=== PATIENT | female | born 1960 | race Caucasian/White ===

== ENCOUNTER → 2018-03-06 | Outpatient (CLI) | payer MEDICAID ==
[~2018-03-06] MED LIST: AMLODIPINE BESY1 TAB PO; ANAPROX DS550 MG PO; ASPIRIN325 M2 PO; ATENOLOL25 MG PO; ATIVAN0.5 MG PO; ATORVASTATIN CA10 M1 PO; Amitriptyline H10 MG PO; CLARITIN10 MG PO; FLEXERIL5 MG PO; FLUOXETINE HCL10 MG PO; KEPPRA500 MG PO; LIPITOR10 MG PO; LISINOPRIL40 MG PO; MIRALAX17 GM PO; PARLODEL2.5 M1 PO; PROTONIX40 MG PO; TENORMIN25 M1 PO; TRAZODONE50 MG PO; VICODIN 5/500 505 MG PO; VITAMIN D34000 UNIT PO; WOMEN'S MULTI200 MCG PO; ZESTORETIC 12.51 TA3 PO
== END | disposition home or self-care (01) ==
LOC: MAMMO 00:37
DX: Z12.31 Encounter for screening mammogram for malignant neoplasm of breast (principal)

== ENCOUNTER 2019-04-12 14:49 | Emergency (ER) | payer MEDICAID ==
[~2019-04-12] VITALS: Ht 170.1 cm; Wt 117.9 kg
--- NOTE | ~2019-04-12 | EKG ---
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
[2019-04-12 15:39] LABS: BILIRUBIN NEGATIVE (NEGATIVE); BLOOD 1+ (NEGATIVE); CLARITY CLEAR (CLEAR); COLOR YELLOW (YELLOW); GLUCOSE NEGATIVE (NEGATIVE); KETONE NEGATIVE (NEGATIVE); LEUKO ESTERASE 1+ (NEGATIVE); NITRITE NEGATIVE (NEGATIVE); SPECIFIC GRAVITY <= 1.005 (1.005-1.030); UROBILINOGEN 0.2 E.U./dl (0.2-1.0)
[2019-04-12 16:04] LABS: BACTERIA 2+; WBC 21-30 wbc/hpf (0-5)
[2019-04-12 16:15] LABS: ALBUMIN 3.3 gm/dl (3.1-4.5); ALKALINE PHOSPHATASE 75 U/L (45-117); BUN 18 mg/dl (7-24); CHLORIDE 109 mmol/L (98-107); CREATININE 1.28 mg/dL (0.55-1.02); LIPASE 85 U/L (73-393); POTASSIUM 4.6 mmol/L (3.5-5.1); SGOT/AST 20 IU/L (3-35); SGPT/ALT 25 U/L (12-78); SODIUM 140 mmol/L (136-145); TOTAL PROTEIN 7.4 gm/dL (6.4-8.2)
[2019-04-12 16:18] LABS: TROPONIN I < 0.015 ng/ml (<0.045)
[2019-04-12 16:43] LABS: BASO # 0.1 10*3/uL (0.0-0.1); BASO % 0.6 % (0.0-1.0); EOS # 0.4 10*3/uL (0.0-0.4); EOS % 3.7 % (1.0-4.0); HEMATOCRIT 41.9 % (37.0-47.0); HEMOGLOBIN 13.7 g/dl (12.0-16.0); LYMPH # 2.3 10*3/uL (1.3-4.4); LYMPH % 24.3 % (27.0-41.0); MEAN CELL VOLUME 96.3 fl (81.0-99.0); MEAN CORPUSCULAR HGB 31.5 pg (27.0-31.0); MEAN CORPUSCULAR HGB CONC 32.7 g/dl (33.0-37.0); MEAN PLATELET VOLUME 10.9 fl (9.6-12.3); MONO # 0.9 10*3/uL (0.1-1.0); MONO % 9.5 % (3.0-9.0); NEUT # 5.9 10*3/uL (2.3-7.9); NEUT % 61.8 % (47.0-73.0); PLATELET COUNT AUTOMATED 233 10*3/uL (130-400); RED BLOOD COUNT 4.35 10*6/uL (4.10-5.10); RED CELL DISTRI WIDTH 12.8 % (0-14.5); WHITE BLOOD COUNT 9.5 10*3/uL (4.8-10.8)
[2019-04-12 16:55] LABS: ACT PARTIAL THROMBO TIME 23.1 SECONDS (20.0-32.1); INTERNATIONAL NORM RATIO 0.9 (2.0-3.5)
[2019-04-12] MEDS ORDERED: CEPHALEXIN500 M1 PO ×2 (17:36→17:53)
== END 2019-04-12 17:40 | disposition other institution (70) ==
LOC: ED 14:49
PROVIDERS: Nurse Practitioner Family
DX: N39.0 Urinary tract infection, site not specified (principal); R42 Dizziness and giddiness; I10 Essential (primary) hypertension; E78.00 Pure hypercholesterolemia, unspecified; Z86.73 Personal history of transient ischemic attack (TIA), and cerebral infarction without residual deficits; Z79.899 Other long term (current) drug therapy

== ENCOUNTER → 2019-05-08 | Outpatient (CLI) | payer MEDICAID ==
[~2019-05-08] MED LIST changes: +CEPHALEXIN500 M1 PO
== END | disposition home or self-care (01) ==
LOC: MAMMO 01:13
DX: Z12.31 Encounter for screening mammogram for malignant neoplasm of breast (principal)

== ENCOUNTER 2020-07-12 22:11 | Inpatient (IN) | payer MEDICAID ==
[~2020-07-12] VITALS: Ht 160 cm; Wt 72.6 kg
[~2020-07-12 22:11] MED LIST changes: -VITAMIN D34000 UNIT PO; +VITAMIN D350 MC2 PO
[2020-07-12 22:12] VITALS: BP 169/79
[2020-07-12 22:36] LABS: BASO # 0.1 10*3/uL (0.0-0.1); BASO % 0.6 % (0.0-1.0); EOS # 0.3 10*3/uL (0.0-0.4); EOS % 3.1 % (1.0-4.0); HEMATOCRIT 41.1 % (37.0-47.0); LYMPH # 1.9 10*3/uL (1.3-4.4); LYMPH % 20.4 % (27.0-41.0); MEAN CELL VOLUME 95.1 fl (81.0-99.0); MEAN CORPUSCULAR HGB 32.4 pg (27.0-31.0); MEAN CORPUSCULAR HGB CONC 34.1 g/dl (33.0-37.0); MEAN PLATELET VOLUME 10.8 fl (9.6-12.3); MONO % 10.9 % (3.0-9.0); NEUT # 6.2 10*3/uL (2.3-7.9); NEUT % 64.8 % (47.0-73.0); PLATELET COUNT AUTOMATED 232 10*3/uL (130-400); RED BLOOD COUNT 4.32 10*6/uL (4.10-5.10); RED CELL DISTRI WIDTH 12.7 % (0-14.5); WHITE BLOOD COUNT 9.5 10*3/uL (4.8-10.8)
[2020-07-12 22:50] LABS: ALBUMIN 3.4 gm/dl (3.1-4.5); ALKALINE PHOSPHATASE 88 U/L (45-117); BUN 14 mg/dl (7-24); CHLORIDE 106 mmol/L (98-107); CREATININE 1.03 mg/dL (0.55-1.02); LIPASE 67 U/L (73-393); SGOT/AST 8 IU/L (3-35); SGPT/ALT 25 U/L (12-78); SODIUM 140 mmol/L (136-145); TOTAL PROTEIN 7.6 gm/dL (6.4-8.2)
[2020-07-13 06:24] LABS: BASO % 0.3 % (0.0-1.0); EOS # 0.1 10*3/uL (0.0-0.4); EOS % 0.8 % (1.0-4.0); LYMPH # 1.7 10*3/uL (1.3-4.4); LYMPH % 16.4 % (27.0-41.0); MEAN CELL VOLUME 95.1 fl (81.0-99.0); MEAN CORPUSCULAR HGB 31.5 pg (27.0-31.0); MEAN CORPUSCULAR HGB CONC 33.1 g/dl (33.0-37.0); MEAN PLATELET VOLUME 11.1 fl (9.6-12.3); MONO # 0.8 10*3/uL (0.1-1.0); MONO % 7.7 % (3.0-9.0); NEUT # 7.5 10*3/uL (2.3-7.9); NEUT % 74.5 % (47.0-73.0); PLATELET COUNT AUTOMATED 218 10*3/uL (130-400); RED CELL DISTRI WIDTH 12.9 % (0-14.5); WHITE BLOOD COUNT 10.1 10*3/uL (4.8-10.8)
[2020-07-13 06:34] LABS: ALBUMIN 3.1 gm/dl (3.1-4.5); ALKALINE PHOSPHATASE 75 U/L (45-117); BUN 11 mg/dl (7-24); CHLORIDE 109 mmol/L (98-107); CHOLESTEROL 127 mg/dL (<200); CREATININE 0.96 mg/dL (0.55-1.02); FREE T4 1.05 ng/dl (0.76-1.46); HDL CHOLESTEROL 68 mg/dl (40-60); LDL CHOLESTEROL 49 mg/dL (9-159); POTASSIUM 3.9 mmol/L (3.5-5.1); SGOT/AST 13 IU/L (3-35); SGPT/ALT 21 U/L (12-78); SODIUM 143 mmol/L (136-145); TOTAL PROTEIN 6.9 gm/dL (6.4-8.2); TRIGLYCERIDES 48 mg/dl (<150); VLDL CHOLESTEROL 10 mg/dL (6-40)
[2020-07-13 06:58] LABS: ACT PARTIAL THROMBO TIME 26.1 SECONDS (20.0-32.1)
[2020-07-13 07:04] LABS: VITAMIN D, 25-HYDROXY 47.9 ng/mL (30-100)
[2020-07-13 08:02] VITALS: BP 162/74
[2020-07-13] MEDS ORDERED: ASCORBIC ACID500 M2 PO (09:53)
[2020-07-13] MEDS ORDERED: ARTIFICIAL TEAR1514 OP (09:53)
[2020-07-13] MEDS ORDERED: CENTRUM SILVER1 EACH PO (09:55)
[2020-07-13] MEDS ORDERED: CRANBERRY200 MG PO (09:57)
[2020-07-13] MEDS ORDERED: DIVALPROEX SOD250 M1 PO (09:58)
[2020-07-13] MEDS ORDERED: COLACE100 MG PO (09:59)
[2020-07-13] MEDS ORDERED: DRAMAMINE50 M2 PO (10:01)
[2020-07-13] MEDS ORDERED: ONDANSETRON HYDR4 M1 PO (10:02)
[2020-07-13] MEDS ORDERED: MIRALAX17 GM PO (10:02)
[2020-07-13] MEDS ORDERED: ACETAMINOPHEN325 M2 PO (10:03)
[2020-07-13 12:00] VITALS: BP 137/64
[2020-07-13 16:00] VITALS: BP 130/63
[2020-07-13 20:00] VITALS: BP 131/61
[2020-07-14] VITALS: BP 144/74
[2020-07-14 06:45] LABS: BASO % 0.5 % (0.0-1.0); EOS # 0.2 10*3/uL (0.0-0.4); EOS % 2.7 % (1.0-4.0); HEMATOCRIT 38.3 % (37.0-47.0); LYMPH # 1.1 10*3/uL (1.3-4.4); LYMPH % 13.9 % (27.0-41.0); MEAN CELL VOLUME 95.3 fl (81.0-99.0); MEAN CORPUSCULAR HGB 31.6 pg (27.0-31.0); MEAN CORPUSCULAR HGB CONC 33.2 g/dl (33.0-37.0); MONO # 0.8 10*3/uL (0.1-1.0); MONO % 9.3 % (3.0-9.0); NEUT % 73.4 % (47.0-73.0); PLATELET COUNT AUTOMATED 218 10*3/uL (130-400); RED BLOOD COUNT 4.02 10*6/uL (4.10-5.10); RED CELL DISTRI WIDTH 12.9 % (0-14.5); WHITE BLOOD COUNT 8.1 10*3/uL (4.8-10.8)
[2020-07-14 06:47] LABS: BUN 7 mg/dl (7-24); CHLORIDE 107 mmol/L (98-107); CREATININE 0.99 mg/dL (0.55-1.02); POTASSIUM 3.8 mmol/L (3.5-5.1); SODIUM 139 mmol/L (136-145)
[2020-07-14 08:00] VITALS: BP 120/65
[2020-07-14 12:00] VITALS: BP 126/61
[2020-07-14] MEDS ORDERED: CIPRO500 MG PO (14:05)
[2020-07-14] MEDS ORDERED: FLAGYL500 MG PO (14:05)
[2020-07-14 16:00] VITALS: BP 132/81
== END 2020-07-14 19:32 | DRG 244 ==
LOC: ED 22:11 → 5E 07-13 02:25 → EDHOLD 07-13 02:25 → 5E 07-13 08:30
PROVIDERS: Hospitalist; Internal Medicine; ADMIT Student in an Organized Health Care Education/Training Program; ATTEND Student in an Organized Health Care Education/Training Program
DX: K57.32 Diverticulitis of large intestine without perforation or abscess without bleeding (principal); R48.2 Apraxia; N17.0 Acute kidney failure with tubular necrosis; E78.5 Hyperlipidemia, unspecified; E11.42 Type 2 diabetes mellitus with diabetic polyneuropathy; F32.9 Major depressive disorder, single episode, unspecified; N18.31 Chronic kidney disease, stage 3a; E11.22 Type 2 diabetes mellitus with diabetic chronic kidney disease; I12.9 Hypertensive chronic kidney disease with stage 1 through stage 4 chronic kidney disease, or unspecified chronic kidney disease; F41.9 Anxiety disorder, unspecified; E11.65 Type 2 diabetes mellitus with hyperglycemia; J44.9 Chronic obstructive pulmonary disease, unspecified; E55.9 Vitamin D deficiency, unspecified; I69.951 Hemiplegia and hemiparesis following unspecified cerebrovascular disease affecting right dominant side; Z98.891 History of uterine scar from previous surgery; Z79.1 Long term (current) use of non-steroidal anti-inflammatories (NSAID); Z79.82 Long term (current) use of aspirin; Z79.899 Other long term (current) drug therapy

== ENCOUNTER → 2020-12-11 | Outpatient (CLI) | payer MEDICAID ==
[~2020-12-11] MED LIST changes: +ACETAMINOPHEN325 M2 PO; +ARTIFICIAL TEAR1514 OP; +ASCORBIC ACID500 M2 PO; +CENTRUM SILVER1 EACH PO; +CIPRO500 MG PO; +COLACE100 MG PO; +CRANBERRY200 MG PO; +DIVALPROEX SOD250 M1 PO; +DRAMAMINE50 M2 PO; +FLAGYL500 MG PO; +ONDANSETRON HYDR4 M1 PO
== END | disposition home or self-care (01) ==
LOC: MAMMO 08:27
PROVIDERS: ATTEND Internal Medicine
DX: Z12.31 Encounter for screening mammogram for malignant neoplasm of breast (principal)

== ENCOUNTER → 2022-09-15 | Outpatient (CLI) | payer MEDICAID | END | disposition home or self-care (01) | LOC: CT 08-25 16:00 | PROVIDERS: ATTEND Internal Medicine | DX: I63.89 Other cerebral infarction (principal); Z86.73 Personal history of transient ischemic attack (TIA), and cerebral infarction without residual deficits ==

== ENCOUNTER 2022-11-27 01:43 | Emergency (ER) | payer MEDICAID ==
[2022-11-27] MEDS ORDERED: AMLODIPINE BESY10 MG PO (01:51)
[2022-11-27] MEDS ORDERED: DIVALPROEX SOD125 MG PO (01:52)
[2022-11-27] MEDS ORDERED: GOOD NEIGHBOR L10 MG PO (01:53)
[2022-11-27] MEDS ORDERED: LISINOPRIL5 MG PO (01:54)
[2022-11-27] MEDS ORDERED: HYDROCHLOROTH12.5 M3 PO (01:54)
[2022-11-27] MEDS ORDERED: AMMONIUM LACTA385 GM T (01:55)
[2022-11-27] MEDS ORDERED: POTASSIUM CHLO20 ME4 PO (01:55)
[2022-11-27] MEDS ORDERED: MECLIZINE HYD12.5 MG PO (01:56)
[2022-11-27] MEDS ORDERED: SALINE NASAL SP88 ML NAS (01:57)
[2022-11-27] MEDS ORDERED: MILK OF MA400 MG/51 PO (01:58)
[2022-11-27] MEDS ORDERED: IBUPROFEN600 MG PO (01:58)
[2022-11-27] MEDS ORDERED: TYLENOL EXTRA500 M2 PO (01:59)
[2022-11-27] MEDS ORDERED: FLONASE ALLERG9.9 ML NAS (02:00)
[2022-11-27] MEDS ORDERED: VOLTAREN ARTHRI20 GM T (02:01)
[2022-11-27] MEDS ORDERED: ARTIFICIAL TEAR OU (02:02)
[2022-11-27] MEDS ORDERED: VITAMIN D250 MCG PO (02:02)
[2022-11-27 02:08] LABS: BASO # 0.1 10*3/uL (0.0-0.1); BASO % 0.6 % (0.0-1.0); EOS # 0.4 10*3/uL (0.0-0.4); EOS % 3.1 % (1.0-4.0); HEMATOCRIT 39.4 % (37.0-47.0); LYMPH # 1.8 10*3/uL (1.3-4.4); LYMPH % 14.7 % (27.0-41.0); MEAN CELL VOLUME 89.7 fl (81.0-99.0); MEAN CORPUSCULAR HGB 31.7 pg (27.0-31.0); MEAN CORPUSCULAR HGB CONC 35.3 g/dl (33.0-37.0); MEAN PLATELET VOLUME 10.5 fl (9.6-12.3); MONO # 0.8 10*3/uL (0.1-1.0); MONO % 6.4 % (3.0-9.0); NEUT # 9.1 10*3/uL (2.3-7.9); NEUT % 74.9 % (47.0-73.0); PLATELET COUNT AUTOMATED 274 10*3/uL (130-400); RED BLOOD COUNT 4.39 10*6/uL (4.10-5.10); RED CELL DISTRI WIDTH 12.9 % (0-14.5); WHITE BLOOD COUNT 12.1 10*3/uL (4.8-10.8)
[2022-11-27 02:32] LABS: POTASSIUM 3.8 mmol/L (3.4-5.1); TOTAL PROTEIN 7.4 gm/dL (6.0-8.0)
[2022-11-27] MEDS ORDERED: ONDANSETRON4 MG SL (04:07)
== END 2022-11-27 04:35 ==
LOC: ED 01:43
PROVIDERS: Internal Medicine
DX: R11.2 Nausea with vomiting, unspecified (principal); D72.829 Elevated white blood cell count, unspecified; I12.9 Hypertensive chronic kidney disease with stage 1 through stage 4 chronic kidney disease, or unspecified chronic kidney disease; N18.31 Chronic kidney disease, stage 3a; F41.9 Anxiety disorder, unspecified; F32.A Depression, unspecified; E78.00 Pure hypercholesterolemia, unspecified; Z98.890 Other specified postprocedural states

== ENCOUNTER → 2023-02-07 | Outpatient (CLI) | payer MEDICAID ==
[~2023-02-07] MED LIST changes: +AMLODIPINE BESY10 MG PO; +AMMONIUM LACTA385 GM T; +ARTIFICIAL TEAR OU; +DIVALPROEX SOD125 MG PO; +FLONASE ALLERG9.9 ML NAS; +GOOD NEIGHBOR L10 MG PO; +HYDROCHLOROTH12.5 M3 PO; +IBUPROFEN600 MG PO; +LISINOPRIL5 MG PO; +MECLIZINE HYD12.5 MG PO; +MILK OF MA400 MG/51 PO; +ONDANSETRON4 MG SL; +POTASSIUM CHLO20 ME4 PO; +SALINE NASAL SP88 ML NAS; +TYLENOL EXTRA500 M2 PO; +VITAMIN D250 MCG PO; +VOLTAREN ARTHRI20 GM T
== END | disposition home or self-care (01) ==
LOC: MAMMO 01-17 09:30
PROVIDERS: ATTEND Internal Medicine
DX: Z12.31 Encounter for screening mammogram for malignant neoplasm of breast (principal)

== ENCOUNTER 2023-06-27 03:52 | Emergency (ER) | payer MEDICAID | END 2023-06-27 05:38 | LOC: ED 03:52 | DX: R20.2 Paresthesia of skin (principal); I63.9 Cerebral infarction, unspecified; F41.9 Anxiety disorder, unspecified; I10 Essential (primary) hypertension; F32.A Depression, unspecified; E78.00 Pure hypercholesterolemia, unspecified; Z90.89 Acquired absence of other organs; Z98.51 Tubal ligation status; Z98.890 Other specified postprocedural states ==

== ENCOUNTER 2023-12-23 17:38 | Emergency (ER) | payer MEDICAID ==
[~2023-12-23] VITALS: Wt 90.7 kg
[2023-12-23] MEDS ORDERED: SODIUM CHLORIDE 0.9% 1,000 ML IV ONE (17:50)
[2023-12-23] MEDS ORDERED: SODIUM CHLORIDE 0.9% 100 ML BAG IV ONE (17:55)
[2023-12-23] MEDS ORDERED: IOHEXOL 350 MG/ML 100 ML VIAL IV ONE ×2 (17:55→18:12)
[2023-12-23 18:10] LABS: BASO # 0.1 10*3/uL (0.0-0.1); BASO % 0.9 % (0.0-1.0); EOS # 0.6 10*3/uL (0.0-0.4); EOS % 7.2 % (1.0-4.0); HEMATOCRIT 42.3 % (37.0-47.0); LYMPH # 1.9 10*3/uL (1.3-4.4); LYMPH % 24.5 % (27.0-41.0); MEAN CELL VOLUME 97.5 fl (81.0-99.0); MEAN CORPUSCULAR HGB 31.8 pg (27.0-31.0); MEAN CORPUSCULAR HGB CONC 32.6 g/dl (33.0-37.0); MEAN PLATELET VOLUME 10.2 fl (9.6-12.3); MONO # 0.7 10*3/uL (0.1-1.0); MONO % 8.9 % (3.0-9.0); NEUT # 4.4 10*3/uL (2.3-7.9); NEUT % 58.2 % (47.0-73.0); PLATELET COUNT AUTOMATED 256 10*3/uL (130-400); RED BLOOD COUNT 4.34 10*6/uL (4.10-5.10); RED CELL DISTRI WIDTH 12.9 % (0-14.5); WHITE BLOOD COUNT 7.6 10*3/uL (4.8-10.8)
[2023-12-23] MEDS ORDERED: SODIUM CHLORIDE 0.9% 100 ML IV ONE (18:12)
[2023-12-23 18:17] LABS: BUN 10 mg/dl (9-23); CHLORIDE 108 mmol/L (98-107); POTASSIUM 3.7 mmol/L (3.4-5.1)
[2023-12-23] MEDS ORDERED: REMERON15 M2 PO (18:55)
[2023-12-23] MEDS ORDERED: BACLOFEN5 MG PO (18:56)
[2023-12-23] MEDS ORDERED: AMLODIPINE BESYL5 MG PO (18:59)
[2023-12-23 19:10] LABS: ACT PARTIAL THROMBO TIME 25.2 SECONDS (20.0-32.1)
[2023-12-23] MEDS ORDERED: Ondansetron Hydrochloride 4 MG/2 ML VIAL IV ONE (20:15)
== END 2023-12-24 02:05 | disposition short-term general hospital (02) ==
LOC: ED 17:38
PROVIDERS: Emergency Medicine
DX: I63.9 Cerebral infarction, unspecified (principal); R20.0 Anesthesia of skin; F41.9 Anxiety disorder, unspecified; I10 Essential (primary) hypertension; F32.A Depression, unspecified; E78.00 Pure hypercholesterolemia, unspecified; Z98.890 Other specified postprocedural states; Z98.51 Tubal ligation status; Z90.89 Acquired absence of other organs